=== PATIENT | female | born 1985 | race Caucasian/White ===

== ENCOUNTER → 2018-11-19 | Emergency (ER) | payer OTHER ==
[~2018-11-19] VITALS: Ht 167.6 cm; Wt 56.2 kg
[~2018-11-19] MED LIST: AZITHROMYCIN250 MG PO; PRILOSEC20 MG PO; PROVENTIL3 ML/2.5 M IH; ZYNCOF 20-400120 ML PO
== END | disposition left against medical advice (07) ==
LOC: ER 21:43
DX: F06.4 Anxiety disorder due to known physiological condition (principal)

== ENCOUNTER 2021-01-20 18:03 | Inpatient (IN) | payer OTHER ==
[~2021-01-20] VITALS: Ht 167.6 cm; Wt 61.2 kg
== END 2021-01-23 11:44 | disposition home or self-care (01) | DRG 833 ==
LOC: LDR 18:03 → OB/GYN 01-22 13:19
PROVIDERS: ADMIT Obstetrics & Gynecology; ATTEND Obstetrics & Gynecology
PROC: 4A1HXFZ Monitoring of Products of Conception, Cardiac Rhythm, External Approach (ICD-10-PCS; principal; 2021-01-20)
PROC: BY4CZZZ Ultrasonography of Second Trimester, Single Fetus (ICD-10-PCS; 2021-01-22)
DX: O47.02 False labor before 37 completed weeks of gestation, second trimester (principal); Z3A.22 22 weeks gestation of pregnancy

== ENCOUNTER 2021-01-29 08:44 | Outpatient (CLI) | payer OTHER | END 2021-01-29 09:01 | disposition home or self-care (01) | LOC: NST 08:44 | PROVIDERS: ATTEND Obstetrics & Gynecology | DX: Z34.82 Encounter for supervision of other normal pregnancy, second trimester (principal) ==

== ENCOUNTER 2021-02-11 10:50 | Outpatient (CLI) | payer OTHER | END 2021-02-11 11:42 | disposition home or self-care (01) | LOC: NST 10:50 | PROVIDERS: ATTEND Obstetrics & Gynecology | DX: Z34.82 Encounter for supervision of other normal pregnancy, second trimester (principal) ==

== ENCOUNTER 2021-02-12 08:04 | Outpatient (CLI) | payer OTHER | END 2021-02-12 08:19 | disposition home or self-care (01) | LOC: NST 08:04 | PROVIDERS: ATTEND Obstetrics & Gynecology Maternal & Fetal Medicine | DX: Z34.82 Encounter for supervision of other normal pregnancy, second trimester (principal) ==

== ENCOUNTER 2021-02-18 10:14 | Outpatient (CLI) | payer OTHER | END 2021-02-18 10:56 | disposition home or self-care (01) | LOC: NST 10:14 | PROVIDERS: ATTEND Obstetrics & Gynecology Maternal & Fetal Medicine | DX: Z34.82 Encounter for supervision of other normal pregnancy, second trimester (principal) ==

== ENCOUNTER 2021-02-23 09:26 | Outpatient (CLI) | payer OTHER | END 2021-02-23 10:10 | disposition home or self-care (01) | LOC: NST 09:26 | PROVIDERS: ATTEND Obstetrics & Gynecology Maternal & Fetal Medicine | DX: Z34.02 Encounter for supervision of normal first pregnancy, second trimester (principal) ==

== ENCOUNTER 2021-03-02 10:47 | Outpatient (CLI) | payer OTHER | END 2021-03-02 11:28 | disposition home or self-care (01) | LOC: NST 10:47 | PROVIDERS: ATTEND Obstetrics & Gynecology Maternal & Fetal Medicine | DX: Z34.83 Encounter for supervision of other normal pregnancy, third trimester (principal) ==

== ENCOUNTER 2021-03-16 09:26 | Outpatient (CLI) | payer OTHER | END 2021-03-16 09:55 | disposition home or self-care (01) | LOC: NST 09:26 | PROVIDERS: ATTEND Obstetrics & Gynecology Maternal & Fetal Medicine | DX: Z34.83 Encounter for supervision of other normal pregnancy, third trimester (principal) ==

== ENCOUNTER 2021-03-30 08:24 | Outpatient (CLI) | payer OTHER | END 2021-03-30 08:49 | disposition home or self-care (01) | LOC: NST 08:24 | PROVIDERS: ATTEND Obstetrics & Gynecology Maternal & Fetal Medicine | DX: Z34.83 Encounter for supervision of other normal pregnancy, third trimester (principal) ==

== ENCOUNTER 2021-04-23 15:06 | Outpatient (CLI) | payer OTHER | END 2021-04-23 15:35 | disposition home or self-care (01) | LOC: NST 15:06 | PROVIDERS: ATTEND Obstetrics & Gynecology Maternal & Fetal Medicine | DX: Z34.83 Encounter for supervision of other normal pregnancy, third trimester (principal) ==

== ENCOUNTER 2021-04-29 11:49 | Outpatient (CLI) | payer OTHER | END 2021-04-29 12:25 | disposition home or self-care (01) | LOC: NST 11:49 | PROVIDERS: ATTEND Obstetrics & Gynecology Maternal & Fetal Medicine | DX: Z34.83 Encounter for supervision of other normal pregnancy, third trimester (principal) ==

== ENCOUNTER 2021-04-29 15:14 | Inpatient (IN) | payer OTHER ==
[~2021-04-29] VITALS: Ht 167.6 cm; Wt 71.2 kg
[2021-06-01] MEDS ORDERED: PRENATAL CAPLE1 EAC1 (15:21)
[2021-06-02] MEDS ORDERED: NIFEDIPINE ER60 M1 (08:14)
== END 2021-06-04 15:48 | disposition home or self-care (01) | DRG 807 ==
LOC: OB/GYN 05-26 15:11 → LDR 06-01 13:35 → SURG-SUITE 06-02 10:54
PROVIDERS: ADMIT Obstetrics & Gynecology Maternal & Fetal Medicine; ATTEND Obstetrics & Gynecology Maternal & Fetal Medicine
PROC: 4A1HXCZ Monitoring of Products of Conception, Cardiac Rate, External Approach (ICD-10-PCS; 2021-06-01)
PROC: 3E0P7VZ Introduction of Hormone into Female Reproductive, Via Natural or Artificial Opening (ICD-10-PCS; 2021-06-01)
PROC: 10E0XZZ Delivery of Products of Conception, External Approach (ICD-10-PCS; principal; 2021-06-02)
DX: O48.0 Post-term pregnancy (principal); Z37.0 Single live birth; Z3A.41 41 weeks gestation of pregnancy; Z20.822 Contact with and (suspected) exposure to COVID-19

== ENCOUNTER 2021-05-22 03:38 | Outpatient (CLI) | payer OTHER | END 2021-05-22 13:31 | disposition home or self-care (01) | LOC: OBS/DEL 03:38 | PROVIDERS: ATTEND Obstetrics & Gynecology | DX: O26.893 Other specified pregnancy related conditions, third trimester (principal); Z3A.39 39 weeks gestation of pregnancy; Z88.2 Allergy status to sulfonamides; Z88.8 Allergy status to other drugs, medicaments and biological substances ==

== ENCOUNTER 2021-05-25 08:29 | Outpatient (CLI) | payer OTHER | END 2021-05-25 09:17 | disposition home or self-care (01) | LOC: NST 08:29 | PROVIDERS: ATTEND Obstetrics & Gynecology | DX: Z34.83 Encounter for supervision of other normal pregnancy, third trimester (principal) ==

== ENCOUNTER → 2021-08-27 | Outpatient (CLI) | payer OTHER ==
[~2021-08-27] MED LIST changes: +NIFEDIPINE ER60 M1; +PRENATAL CAPLE1 EAC1
== END | disposition home or self-care (01) ==
LOC: RAD 09:50
PROVIDERS: ATTEND Physical Medicine & Rehabilitation
DX: M54.59 Other low back pain (principal)

== ENCOUNTER → 2024-06-27 10:00 | Outpatient (CLI) | payer OTHER | END | disposition home or self-care (01) | LOC: SONOGRAMA 10:00 | PROVIDERS: ATTEND Pathology Anatomic Pathology & Clinical Pathology | DX: D34 Benign neoplasm of thyroid gland (principal); E07.89 Other specified disorders of thyroid; E04.1 Nontoxic single thyroid nodule ==

== ENCOUNTER 2024-08-01 11:02 | Emergency (ER) | payer OTHER ==
[~2024-08-01] VITALS: Ht 167.6 cm; Wt 57.2 kg
[2024-08-01] MEDS ORDERED: 0.9 % SODIUM CHLORIDE 1,000 ML IV STA (11:25)
[2024-08-01] MEDS ORDERED: ONDANSETRON HCL 2 MG/ML VIAL IV STA (11:25)
[2024-08-01] MEDS ORDERED: ONDANSETRON HCL 2 MG/ML VIAL ONE (11:26)
[2024-08-01 12:05] LABS: BASO % 0.5 % (0.1-1.2); EOS # 0.01 (0.04-0.54); EOS % 0.1 % (0.7-7.0); HEMATOCRIT 43.6 % (34.1-44.9); HEMOGLOBIN 14.3 g/dL (11.2-15.7); LYMPH # 1.02 (1.18-3.74); LYMPH % 12.8 % (19.3-53.1); MEAN CORPUSCULAR HEMOGLOBIN 30.2 pg (25.6-32.2); NEUT # 6.47 (1.56-6.13); NEUT % 81.3 % (34.0-71.1); PLATELET COUNT 276 K/uL (163-369); RED BLOOD COUNT 4.74 M/uL (3.93-5.22); RED CELL DISTRIBUTION WIDTH 12.8 % (11.6-14.4)
[2024-08-01] MEDS ORDERED: PANTOPRAZOLE SODIUM 40 MG/VIAL VIAL IV ONE (12:15)
[2024-08-01] MEDS ORDERED: PROMETHAZINE HCL 25 MG/ML AMPUL IM ONE (12:15)
[2024-08-01 12:32] LABS: CALCIUM 9.6 mg/dL (8.5-10.1); CREATININE SERUM 0.67 mg/dL (0.55-1.02); GFR 97.48; POTASSIUM 4.14 mEq/L (3.5-5.1)
[2024-08-01] MEDS ORDERED: PROMETHAZINE HCL 25 MG/ML AMPUL ONE (12:49)
[2024-08-01] MEDS ORDERED: ACETAMINOPHEN 500 MG GEL..CAP PO ONE ×2 (16:04→16:15)
[2024-08-01] MEDS ORDERED: SUCRALFATE 1 G TABLET PO ONE (16:15)
[2024-08-01 16:19] VITALS: BP 111/71; O2SAT 98
== END 2024-08-01 16:32 | disposition home or self-care (01) ==
LOC: ER 11:18
PROVIDERS: Emergency Medicine
DX: K29.70 Gastritis, unspecified, without bleeding (principal); R11.10 Vomiting, unspecified; Z88.2 Allergy status to sulfonamides; Z88.5 Allergy status to narcotic agent